=== PATIENT | male | born 1965 | race Hispanic/Latino ===

== ENCOUNTER 2025-04-01 09:21 | Inpatient (IN) | payer SELFPAY ==
[2025-04-01] VITALS (7 sets, daily range): BP systolic 130–150; BP diastolic 58–67; PULSE 75–76; RESP 16–18; TEMP 98–98.5; O2SAT 98–100
[~2025-04-01] VITALS: Ht 170.2 cm; Wt 66.2 kg
[2025-04-01 10:51] LABS: BASOPHILS % 0.7 % (0.0-1.0); EOSINOPHILS % 1.4 % (0.0-6.0); LYMPHOCYTES % 18.6 % (18.0-39.1); MONOCYTES % 7.3 % (4.4-11.3); NEUTROPHILS % 71.8 % (38.7-80.0); RED CELL DISTRIBUTION WIDTH 17.4 % (11.7-14.4)
[2025-04-01 11:08] LABS: EST GLOMERULAR FILTRATION RATE 81.0 ML/MIN (>=60)
[2025-04-01] MEDS ORDERED: SODIUM CHLORIDE 0.9% 250ML 250 ML ONE (12:36)
[2025-04-01] MEDS: SODIUM CHLORIDE 0.9% 250ML 250 ML IV ONE (15:49)
[2025-04-01 16:15] LABS: EOSINOPHILS % (MANUAL) 2 % (0-7); LYMPHOCYTES % (MANUAL) 19 % (19-48); MONOCYTES % (MANUAL) 5 % (3.4-9.0); NEUTROPHILS % (MANUAL) 73 % (40-74); PLATELET ESTIMATE ADEQUATE; PLATELET MORPHOLOGY COMMENT FEW LARGE; REACTIVE LYMPHOCYTES 1
[2025-04-01 16:16] LABS: RBC MORPHOLOGY COMMENT NORMAL
[2025-04-01] MEDS ORDERED: ATORVASTATIN CA20 MG PO (18:26)
[2025-04-01] MEDS ORDERED: LISINOPRIL10 MG PO (18:26)
[2025-04-01] MEDS: CYANOCOBALAMIN INJ 1,000 MCG/ML VIAL IM ONE (23:38)
[2025-04-01 23:40] LABS: % IRON SATURATION 4 % (15-50)
[2025-04-02] VITALS (7 sets, daily range): BP systolic 130–158; BP diastolic 65–76; PULSE 66–83; RESP 16–18; TEMP 98.1–98.5; O2SAT 96–100
[2025-04-02 08:29] LABS: BASOPHILS % 1.2 % (0.0-1.0); EOSINOPHILS % 4.2 % (0.0-6.0); LYMPHOCYTES % 29.2 % (18.0-39.1); MONOCYTES % 12.2 % (4.4-11.3); NEUTROPHILS % 52.9 % (38.7-80.0); RED CELL DISTRIBUTION WIDTH 20.5 % (11.7-14.4)
[2025-04-02 08:50] LABS: EST GLOMERULAR FILTRATION RATE 98.0 ML/MIN (>=60)
[2025-04-02] MEDS: IRON SUCROSE 100 MG in SODIUM CHLORIDE 0.9% 100 ML IV SCH (10:08)
[2025-04-02] MEDS: SODIUM CHLORIDE 0.9% 250ML 250 ML ONE (10:09)
[2025-04-02] MEDS: CYANOCOBALAMIN INJ 1,000 MCG/ML VIAL IM SCH (10:09)
[2025-04-02] MEDS ORDERED: PANTOPRAZOLE SO40 MG PO (16:39)
[2025-04-02] MEDS ORDERED: FEROSUL325 MG PO (16:39)
== END 2025-04-02 18:35 | disposition home or self-care (01) | DRG 812 ==
LOC: ER 09:29 → ERHOLD 10:03 → MED/SURG2 16:26
PROVIDERS: ADMIT Internal Medicine; ATTEND Internal Medicine
PROC: 30233N1 Transfusion of Nonautologous Red Blood Cells into Peripheral Vein, Percutaneous Approach (ICD-10-PCS; principal; 2025-04-01)
DX: D50.9 Iron deficiency anemia, unspecified (principal); K92.2 Gastrointestinal hemorrhage, unspecified; E11.9 Type 2 diabetes mellitus without complications; I10 Essential (primary) hypertension; E78.5 Hyperlipidemia, unspecified; D72.819 Decreased white blood cell count, unspecified; F10.10 Alcohol abuse, uncomplicated
CPT/HCPCS: 36415; 80048; 80053; 82607; 82746; 82948; 83540; 84466; 85014; 85018; 85025; 85045; 86850; 86900; 86920; 94799; 99284; J1756; J2470; J3420; J7050; P9016